=== PATIENT | female | born 1985 | race Caucasian/White ===

== ENCOUNTER → 2018-01-28 | Outpatient (CLI) | payer OTHER ==
[~2018-01-28] MED LIST: ACET-1718 PO; CHRO400T2 PO; CYAN1TAB68 PO; CYAN50003 PO; FLU60SYR30 IM ONLY; GUAI120L3 PO; IBUP800T37 PO; LEVO1TAB31 PO; LIS50 PO; MAGN400T10 PO; MECL25TA9 PO; MELO-207 PO; METH1TAB18 PO; MULT-1124 PO; ONDA4TAB PO; PRED20TA6 PO; [UNRECOGNIZED DRUG - CODE] TP; b6 PO
== END ==
LOC: LAB 10:49
PROVIDERS: ATTEND Nurse Practitioner Primary Care
DX: J02.9 Acute pharyngitis, unspecified (principal)
CPT/HCPCS: 87081

== ENCOUNTER → 2018-07-20 | Outpatient (CLI) | payer OTHER ==
[~2018-07-20] MED LIST changes: +BUPR-124 PO; +BUPR-472 PO; +BUPR300T56 PO; +CYCL10TA29 PO; +DEX1 PO; +DOXY-229 PO; +FLU60SYR36 IM; +LEVO1IUD6; +LISD10CA PO; +LISD20CA4 PO; +LISD30PT PO; +LISD40PT PO; +MEDR10TA57 PO
--- NOTE | 2018-07-20 17:24 | RADIOLOGY IMAGING REPORT ---
[place]AC[place] [facility] [place] NAME: Maribell Vinson : 1985 MR: [id number] V: [id number] EXAM DATE: ORDERING PHYSICIAN: YUE ALVAREZ TECHNOLOGIST: Location: [facility] Patient: Maribell Vinson : 1985 Visit/Account:[id number] Date of Sevice: 07/20/2018 Exam type: ACUTE ABDOMEN SERIES 3 VIEW History: Constipation x1 month Comparison: Two-view chest December 11, 2013. Findings: Supine and upright views of the abdomen demonstrate a moderate amount of fecal material in the right- sided the colon. The remainder the bowel gas pattern is nonspecific. There is no evidence of free a ir beneath hemidiaphragms. The IUD noted in the pelvis. Single view the chest demonstrates no evidence of pulmonary infiltrates pleural effusions or pulmonar y edema. Cardiac silhouette is normal IMPRESSION: 1. Moderate amount of fecal material in the right-sided the colon which can be seen with constipatio n Lungs free of consolidation Report Dictated By: Tarah Stewart MD at 07/20/2018 5:20 PM Report E-Signed By: Tarah Stewart MD at 07/20/2018 5:21 PM WSN:[email or web address]
== END ==
LOC: RAD 16:51
PROVIDERS: ATTEND Nurse Practitioner
DX: K59.00 Constipation, unspecified (principal)
CPT/HCPCS: 74022